=== PATIENT | female | born 1985 | race Caucasian/White ===

== ENCOUNTER 2016-08-08 19:47 | Inpatient (IN) | payer OTHER ==
[~2016-08-08] VITALS: Ht 162.6 cm; Wt 84.1 kg
[~2016-08-08 19:47] MED LIST: CEPHALEXIN500 M1 PO; DEPAKOTE500 M2 PO; HYDROCORTISONE REC; NORCO 325 MG-7.1 TAB PO; TRILEPTAL; TRILEPTAL600 MG PO; TYLENOL 500MG500 MG PO; [UNRECOGNIZED DRUG - OTHER] REC
[2016-08-08 20:08] VITALS: BP 130/80; PULSE 67; TEMP 98.6
[2016-08-08] MEDS ORDERED: PRENATAL1 TA7 PO (20:14)
[2016-08-08] MEDS ORDERED: FOLIC ACID 11 MG/TA1 PO (20:15)
[2016-08-08] MEDS ORDERED: IRON325 M2 PO (20:15)
[2016-08-08 21:02] VITALS: BP 137/73; PULSE 82
[2016-08-08 21:27] LABS: BASO # 0.1 (0.0-0.2); BASO % 0.4 % (0.0-2.0); EOS # 0.1 (0.0-0.7); EOS % 0.4 % (0-4.0); GRAN % 75.1 % (42.2-75.2); HEMOGLOBIN 12.5 g/dl (12.5-16.0); LYMPH # 2.4 (1.2-3.4); LYMPH % 18.3 % (20.0-51.0); MEAN CELL VOLUME 86 fl (80.0-100.0); MEAN CORPUSCULAR HEMOGLOBIN 30 pg (27.0-31.0); MEAN CORPUSCULAR HGB CONC 35 g/dl (33.0-37.0); MEAN PLATELET VOLUME 11.9 fl (7.4-10.4); MONO # 0.7 (0.1-0.6); MONO % 5.4 % (1.7-9.3); PLATELET COUNT 156 K/mm3 (130-400); RED BLOOD COUNT 4.19 M/mm3 (4.10-5.30); REDCELL DISTRIBUTION WIDTH-CV 14.1 % (11.5-14.5); WHITE BLOOD COUNT 13.3 K/mm3 (4.8-10.8)
[2016-08-08 21:32] LABS: HEMATOCRIT 36.1 % (37.0-47.0)
[2016-08-08 23:30] VITALS: BP 116/70; PULSE 82; TEMP 97.9
[2016-08-09] VITALS (26 sets, daily range): BP systolic 96–161; BP diastolic 51–74; PULSE 66–97; TEMP 97.4–98.7
[2016-08-10 07:30] VITALS: BP 114/62; PULSE 80; TEMP 98.3
[2016-08-10 16:40] VITALS: BP 125/73; PULSE 78; TEMP 98.4
[2016-08-10 20:15] VITALS: BP 118/69; PULSE 78; TEMP 98.5
[2016-08-11 07:30] VITALS: BP 107/83; PULSE 80; TEMP 98
== END 2016-08-11 11:45 | disposition home or self-care (01) | DRG 775 ==
LOC: LDRO 19:47 → OB 20:25 → LDR 20:25 → OB 08-09 08:42
PROVIDERS: Obstetrics & Gynecology
PROC: 10E0XZZ Delivery of Products of Conception, External Approach (ICD-10-PCS; principal; 2016-08-09)
PROC: 0KQM0ZZ Repair Perineum Muscle, Open Approach (ICD-10-PCS; 2016-08-09)
DX: O99.824 Streptococcus B carrier state complicating childbirth (principal); O70.1 Second degree perineal laceration during delivery; Z3A.39 39 weeks gestation of pregnancy; Z37.0 Single live birth
CPT/HCPCS: J0690; J2405; J2590; J2795; J7120

== ENCOUNTER → 2019-06-25 | Outpatient (CLI) | payer OTHER ==
[~2019-06-25] MED LIST changes: +FOLIC ACID 11 MG/TA1 PO; +IRON325 M2 PO; +PRENATAL1 TA7 PO
[2019-06-25 10:06] LABS: BASO % 0.6 % (0.0-2.0); EOS % 0.3 % (0-4.0); GRAN # 3.5 (1.4-6.5); GRAN % 52.1 % (42.2-75.2); HEMATOCRIT 41.9 % (37.0-47.0); HEMOGLOBIN 13.6 g/dl (12.5-16.0); LYMPH # 2.6 (1.2-3.4); LYMPH % 39.4 % (20.0-51.0); MEAN CELL VOLUME 89 fl (80.0-100.0); MEAN CORPUSCULAR HEMOGLOBIN 29 pg (27.0-31.0); MEAN CORPUSCULAR HGB CONC 33 g/dl (33.0-37.0); MEAN PLATELET VOLUME 10.9 fl (7.4-10.4); MONO # 0.5 (0.1-0.6); MONO % 7.3 % (1.7-9.3); PLATELET COUNT 221 K/mm3 (130-400); RED BLOOD COUNT 4.73 M/mm3 (4.10-5.30); REDCELL DISTRIBUTION WIDTH-CV 12.5 % (11.5-14.5)
[2019-06-25 10:34] LABS: ALANINE AMINOTRANSFERASE 16 U/L (9-52); ALBUMIN 4.9 gm/dL (3.5-5.0); ALKALINE PHOSPHATASE 66 U/L (50-136); ANION GAP 10 mmol/L (7-16); AST,SGOT 25 U/L (15-37); BILIRUBIN,TOTAL 0.6 mg/dL (0.0-1.0); BLOOD UREA NITROGEN 9 mg/dL (7-17); CALCIUM 9.5 mg/dL (8.4-10.2); CARBON DIOXIDE 26 mmol/L (22-30); CHLORIDE 104 mmol/L (98-107); CREATININE, serum 0.62 (0.52-1.25); GLUCOSE 94 mg/dL (74-106); LIPASE 48 U/L (23-300); POTASSIUM 3.9 mmol/L (3.4-5.0); SODIUM 141 mmol/L (137-145)
[2019-06-25 10:43] LABS: TROPONIN-I < 0.012 ng/mL (0.000-0.035)
== END ==
LOC: COL.LAB 09:35
PROVIDERS: Physician Assistant Medical
DX: R07.9 Chest pain, unspecified (principal)